=== PATIENT | female | born 1980 | race Caucasian/White ===

== ENCOUNTER → 2018-10-04 16:07 | Outpatient (CLI) | payer OTHER, SELFPAY ==
--- NOTE | 2018-10-04 16:13 | BI_ITS ---
MAMMOGRAPHY - BILATERAL SCREENING REASON FOR EXAM: Female, 37 years old. Routine annual screening examination. PERTINENT HISTORY: Non-contributory. TECHNIQUE: Digital bilateral breast marjorie (3D mammographic acquisition) in the CC and MLO projections. 2-D mediolateral oblique (MLO) and craniocaudad (CC) views of both breasts were obtained. CAD: Full Field Digital Mammography with Computer Added Detection was performed. COMPARISON: Comparison is made with prior study dated July 31, 2017 and February 26, 2016. FINDINGS: Breast Composition: The breasts are extremely dense, which lowers the sensitivity of mammography. There are no dominant masses or suspicious calcifications. No other significant abnormalities are identified. There has been no significant change since the prior study. BI/SCREENING MAMM (CAD), BILAT IMPRESSION: Stable bilateral screening mammogram. Yearly follow-up mammogram recommended. (A) ASSESSMENT CATEGORY: BIRADS Category 1: Negative. A letter regarding these results will be sent to the patient by the facility within 30 days. Approximately 10% of breast cancers are not detected by mammography. A normal mammogram should not delay biopsy of a clinically suspicious abnormality. [id number] Electronically Signed: Bruce Prince MD at 9:00 EST Tel [phone], Service support ,
== END ==
PROVIDERS: Family Provider Student in an Organized Health Care Education/Training Program; PCP Student in an Organized Health Care Education/Training Program; Referring Provider Obstetrics & Gynecology; Visit Provider Obstetrics & Gynecology
DX: Z12.31 Encounter for screening mammogram for malignant neoplasm of breast (principal)
CPT/HCPCS: 77063; 77067

== ENCOUNTER → 2019-07-25 06:57 | Outpatient (CLI) | payer OTHER, SELFPAY ==
--- NOTE | 2019-07-25 06:59 | BI_ITS ---
MAMMOGRAPHY - BILATERAL SCREENING REASON FOR EXAM: Female, 38 years old. Routine annual screening examination. PERTINENT HISTORY: Non-contributory. TECHNIQUE: Digital bilateral breast martha (3D mammographic acquisition) in the CC and MLO projections. 2-D mediolateral oblique (MLO) and craniocaudad (CC) views of both breasts were obtained. CAD: Full Field Digital Mammography with Computer Added Detection was performed. COMPARISON: Comparison is made with prior examination dated October 04, 2018 and July 31, 2017. FINDINGS: Breast Composition: The breasts are extremely dense, which lowers the sensitivity of mammography. There are no dominant masses or suspicious calcifications. No other significant abnormalities are identified. There has been no significant change since the prior study. BI/SCREEN MAMM (CAD) W/MARTHA BILAT IMPRESSION: Stable bilateral screening mammogram. Yearly follow-up mammogram recommended. (A) ASSESSMENT CATEGORY: BIRADS Category 1: Negative. A letter regarding these results will be sent to the patient by the facility within 30 days. Approximately 10% of breast cancers are not detected by mammography. A normal mammogram should not delay biopsy of a clinically suspicious abnormality. [id number] Electronically Signed: Bruce Prince, at 10:15 EDT , Service support ,
== END ==
PROVIDERS: Family Provider Student in an Organized Health Care Education/Training Program; PCP Student in an Organized Health Care Education/Training Program; Referring Provider Obstetrics & Gynecology; Visit Provider Obstetrics & Gynecology
DX: Z12.31 Encounter for screening mammogram for malignant neoplasm of breast (principal)
CPT/HCPCS: 77063; 77067

== ENCOUNTER → 2020-07-31 15:53 | Outpatient (CLI) | payer OTHER, SELFPAY ==
--- NOTE | 2020-07-31 15:59 | BI_ITS ---
MAMMOGRAPHY - BILATERAL SCREENING REASON FOR EXAM: Female, 39 years old. Routine annual screening examination. PERTINENT HISTORY: NO FM HX , CURRENT PROGESTERONE SINCE 2016, PT C/O OCCAS TENDERNESS LT SIDE SINCE 2017 WHEN U/S CONFIRMED CYST TECHNIQUE: Digital bilateral breast marjorie (3D mammographic acquisition) in the CC and MLO projections. 2-D mediolateral oblique (MLO) and craniocaudad (CC) views of both breasts were obtained. CAD: Full Field Digital Mammography with Computer Added Detection was performed. COMPARISON: 07/25/2019, 10/04/2018 FINDINGS: Breast Composition: The breasts are extremely dense, which lowers the sensitivity of mammography. There are no dominant masses or suspicious calcifications. There is a lucent lesion at the lateral aspect of the left breast is consistent with lipoma is stable since the previous study measuring approximately 3 cm. No other significant abnormalities are identified. BI/SCREENING MAMM (CAD), BILAT IMPRESSION: Stable bilateral screening mammogram. Yearly follow-up mammogram recommended. (A) ASSESSMENT CATEGORY: BIRADS Category 2: Benign. A letter regarding these results will be sent to the patient by the facility within 30 days. Approximately 10% of breast cancers are not detected by mammography. A normal mammogram should not delay biopsy of a clinically suspicious abnormality. [id number] Electronically Signed: Epifanio Black, at 12:36 EDT Tel , Service support ,
== END ==
PROVIDERS: PCP Student in an Organized Health Care Education/Training Program; Referring Provider Obstetrics & Gynecology; Visit Provider Obstetrics & Gynecology
DX: Z12.31 Encounter for screening mammogram for malignant neoplasm of breast (principal)
CPT/HCPCS: 77067

== ENCOUNTER → 2021-08-13 14:49 | Outpatient (CLI) | payer OTHER, SELFPAY ==
--- NOTE | 2021-08-13 14:52 | BI_ITS ---
MAMMOGRAPHY - BILATERAL SCREENING REASON FOR EXAM: Female, 40 years old. Routine annual screening examination. PERTINENT HISTORY: Non-contributory. TECHNIQUE: Digital bilateral breast martha (3D mammographic acquisition) in the CC and MLO projections. 2-D mediolateral oblique (MLO) and craniocaudad (CC) views of both breasts were obtained. CAD: Full Field Digital Mammography with Computer Added Detection was performed. COMPARISON: Comparison is made with prior study dated 07/31/2020 and 07/25/2019. FINDINGS: Breast Composition: The breasts are extremely dense, which lowers the sensitivity of mammography. There are no dominant masses or suspicious calcifications. No other significant abnormalities are identified. There has been no significant change since the prior study. BI/SCRN MAMM (CAD)W/MARTHA BILAT IMPRESSION: Stable bilateral screening mammogram. Yearly follow-up mammogram recommended. (A) ASSESSMENT CATEGORY: BIRADS Category 1: Negative. A letter regarding these results will be sent to the patient by the facility within 30 days. Approximately 10% of breast cancers are not detected by mammography. A normal mammogram should not delay biopsy of a clinically suspicious abnormality. [id number] Electronically Signed: Bruce Prince MD at 15:38 EDT , Service support ,
== END ==
PROVIDERS: PCP Student in an Organized Health Care Education/Training Program; Referring Provider Student in an Organized Health Care Education/Training Program; Visit Provider Student in an Organized Health Care Education/Training Program
DX: Z12.31 Encounter for screening mammogram for malignant neoplasm of breast (principal)
CPT/HCPCS: 77063; 77067

== ENCOUNTER 2022-02-17 07:55 | Day surgery (SDC) | payer OTHER, SELFPAY ==
[2022-02-04 16:37] LABS: Hematocrit 34.6 % (37-47); Hemoglobin 11.2 g/dL (12.0-15.0); Mean Corp Hgb Conc 32.4 g/dL (32-36); Mean Corpuscular Hgb 27.5 pg (27.0-32.0); Mean Corpuscular Volume 84.8 fL (81-99); Mean Platelet Vol. 9.1 fl (6.2-12.0); Platelet Count 291 K/mm3 (150-450); RBC Distribution Width CV 13.9 % (11.6-14.6); RBC Distribution Width SD 43.1 fl (35.1-43.9); Red Blood Count 4.08 M/mm3 (4.2-5.4); White Blood Count 5.9 K/mm3 (4.4-11.0)
[2022-02-04 16:43] LABS: International Normalized Ratio 1.1; Prothrombin Time (Protime)PT. 13.2 SECONDS (11.7-14.9)
[2022-02-04 16:44] LABS: Partial Thromboplast Time 27.4 Seconds (24.1-36.2)
[2022-02-17] VITALS (8 sets, daily range): BP systolic 95–105; BP diastolic 46–69; PULSE 58–71; RESP 16; TEMP 36.2–36.8; O2SAT 98–100; BMI 19.5
--- NOTE | 2022-02-17 05:58 | PCM.HP.BLA ---
History and Physical Date of Admission: 02/17/22 Surgical History and Physical Date: 02/17/2022 Name: KIA CLEANING Age: 41 Date of : 1980 Kia Cleaning, a 41 year old female 0 1 0 1 3, presents for Hysteroscopy, dilation and curettage, polypectomy, Liletta IUD placement on February 17 2022 at . -- Kia has a history of menorrhagia with associated anemia requiring iron concerning for adenomyosis and ultrasound suggested possible cervico-uterine polyp. Bleeding has continued despite medical management. ULTRASOUND 12/21/21 UTERUS: 10 x 5.8 x 4.5 cm and contains a 2.2 x 1.6 x 1.9 cm left/fundal/subserosal fibroid. Within the cervical canal is an area with stalk like blood flow pattern. No distinct polyp is seen. ENDOMETRIAL ECHO: .47 cm. RIGHT OVARY: 3.3 x 2 x 1.8 cm and no follicles seen. LEFT OVARY: 3.2 x 2.5 x 2.1 cm and follicles are seen. MEDICATIONS HISTORY: Current medications prescribed by our practice are: 1. iron 325 mg (65 mg iron) tablet, One pill by mouth once a day 2. Prometrium 200 mg capsule, Take 2 capsules by mouth bid cycle days14 through 25 Patient is also takin. Adrenal Supplement [No Strength], pure essence 2. multivitamin tablet 3. Wellbutrin XL 300 mg 24 hr tablet, extended release, 1 PO QD ALLERGIES: NKDA Infections - Chicken pox Illnesses - no serious past illnesses Accidents - no injuries of consequence Hospitalizations - None apart from childbirth hx infertility; Review of Systems: GENERAL - Denies fever, or chills SKIN - Denies skin changes EYES - Denies visual changes EARS - Denies difficulty hearing NOSE - Denies nasal congestion or bleeding MOUTH - Denies sore throat or difficulty swallowing NECK - Denies pain or swelling RESPIRATORY - Denies shortness of breath or wheezing CARDIOVASCULAR - Denies palpitations or chest pain GASTROINTESTINAL - Denies nausea, vomiting, diarrhea, constipation GENITOURINARY - Denies dysuria, frequency of urination, incontinence of urine MUSCULOSKELETAL - Denies joint or muscle pain NEUROLOGICAL - Denies localized numbness or weakness PSYCHIATRIC - Denies depression or anxiety ENDOCRINE - Denies heat or cold intolerance, weight loss or gain HEMATO-IMMUNOLOGIC - Denies excesive bleeding with cuts SOCIAL HISTORY: Alcohol Use - occasionally Smoking - denies smoking Diet - balanced Diet Lifestyle - moderate stress lifestyle and Exercise - regular Seat Belt Use - always Employer - [employer] 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 [place] - [place] Children Name(s) - Marcus Anusha Alex Control - Vasectomy FAMILY HISTORY: Maternal Grandmother: DM I. Paternal Aunt: Ovarian cancer. MENSTRUAL HISTORY: LMP Known?- DefiniteAmount/Duration - 6 days, Regularity - Regular, Frequency - 26 days, Prior Menses - 01/28/2009, LMP - 12/19/21, Age Onset Menarche - 11 PAST PREGNANCIES: Total Pregnancies - 1; Full Term Pregnancies - 0; Premature - 1; Abortions, Induced - 0; Abortions, Spontaneous - 0; Ectopics - 0; Multiple Births - 1; Living Children - 3 SURGICAL HISTORY: 1. 02/29/2012 ; - 2. 01/03/2008 fractional D and C, hysteroscopy ; Dr. Costa - mass 3. 10/06 uterine polyp removal - [place] ; - PHYSICAL EXAM BP- 118/62 Sitting, Right arm, regular cuff Weight- 136.85633 lbs Height- 68.75 inch BMI:[id number] CONSTITUTIONAL - NAD, well nourished, and well developed SKIN - No rash, lesions, or ulcers HEENT - Normocephalic, PERRLA, EOMI NECK - No nodes, no nuchal rigidity and thyroid normal size and texture LYMPH NODES - Palpation of lymph nodes in neck and groins within normal limits LUNGS - CTA x2 without wheezes, crackles or rales CARDIAC - Regular rate and rhythm without rubs, murmurs, or gallops ABDOMEN - Without hepatosplenomegaly, distention, masses, rebound, or guarding; normal bowel sounds; no hernias EXTREMITIES - No edema or calf tenderness NEUROLOGICAL - normal gait, normal balance, normal motor PSYCHIATRIC - A and O to time, place, person, mood and affect External Genitial Vagina - non-tender without lesions Urethra/Urethral Meatus - non-tender Bladder - non-tender Vagina - vaginal nickerson are pink and moist without loss of rugae and no evidence of atropy Cervix - without cervical motion tenderness and has normal size and features without evident lesions Uterus - enlarged uterus 8 wks, wt 125-150 g Adnexa - clear without massess or tenderness PAP 05/17/2019 - NILM 02/04/22 5.9> 11.2/34/6< 291 ASSESSMENT/PLAN: 1. Excessive And Frequent Menstruation With Regular Cycle us suggests endometrial-cervicopolyp, prior subserosal posterior uterine fibroid unchanged, cannot r/o adenomyosis Plan hysteroscopy, D and C, polypectomy, Liletta IUD placement Discussed surgical risks, benefits, indications and alternatives Consents signed and reviewed, preop prep packet reviewed Anticipated hospital course and recovery discussed
[2022-02-17 08:20] LABS: Internal QC Validated? YES +Cl - CLEAR BKGD; Pregnancy, Urine Negative Negative
[2022-02-17] MEDS: Lactated Ringers 1,000 ML 15 ML IV (08:24)
--- NOTE | 2022-02-17 09:25 | EMB_PTH ---
PATIENT: AMY PLEITEZ LOC: [facility] [place] U#:[id number] AGE/SX: 41/F ROOM: RE02/17/[address]: Dr. Valerie Sinha MD : 1980 BED: DIS: 02/17/2022 SPEC #: [id number] RECD: 02/17/22 10:08 STATUS: JEWELL DICKENS #: [id number] RICH: 02/17/22 09:[address]: Valerie Sarkar DEPT: SURGICAL PATHOLOGY RECD BY: Cheryl Dutton ENTERED: 02/17/22 13:34 SP TYPE: ENDOM BX/C OTHR DR: Dr. Gunnar Graham DO Tissues: Endometrium, NOS Procedures: Surgery Specimen Level IV HEADER OPERATION: Hysteroscopy, D & C Symphion, IUD insertion PRE-OP DIAGNOSIS: Excessive and frequent menstruation with regular cycle TISSUE SUBMITTED: Endometrial curettings MICROSCOPIC DIAGNOSIS Endometrium, curettings: Proliferative endometrium. Chronic endometritis. AM:paola 02/18/2022 MICROSCOPIC DESCRIPTION Slides are reviewed. GROSS DESCRIPTION Received in fixative is one container labeled with the patient's name and designated endometrial curettings. The specimen consists of multiple irregular fragments of red-mccormick soft tissue that in aggregate measure 2.5 x 2 x 0.2 cm. The specimen is totally submitted in one cassette. / AM:paola 02/18/2022 TC:3 CPT: 02596
[2022-02-17] MEDS: Lidocaine 1% (20 ml mdv) 20 ML Vial (09:31)
[2022-02-17] MEDS: Levonorgestrel IUD (Liletta) 1 EACH INTRA-UTER (09:45)
--- NOTE | 2022-02-17 09:49 | OP.PCM_ITS ---
Report of Operation Date of Procedure: 02/17/22 Pre-Operative Diagnosis: 1. Menorrhagia 2. Dysmenorrhea 3. Uterine polyp Post-Operative Diagnosis: 1. Menorrhagia 2. Dysmenorrhea Surgery/Procedure Performed:: 1. Hysteroscopy 2. Dilation and curettage 3. Liletta IUD placement Description of Surgical Findings:: normal uterus and tubes, uterus sounded to 7.5cm Surgeon: Valerie Sarkar Type of Anesthesia: Local MAC Anesthesiologist: Hipolito Cotto Specimen's removed: endometrial curettings Estimated Blood Loss (mL): 10 Fluids Replaced: 500 ml Description of Procedure: Indications: 41-year-old 2 para 2 with a history of worsening menorrhagia with dysmenorrhea presents for scheduled hysteroscopy, D&C, possible polypectomy and levonorgestrel IUD placement. History was concerning for adenomyosis. Pelvic ultrasound had demonstrated thickening in the lower uterine segment and upper cervical canal concerning for polyp, with no clear evidence of adenomyosis however on ultrasound. Procedural risks, benefits, indications and alternatives were reviewed and patient opted to proceed. Procedure: Patient was brought to the operating room and spinal was performed. She is placed in the dorsal supine position and induced under MAC. She was repositioned to dorsolithotomy and the perineum prepped and straight catheterization of the bladder performed. She is draped in sterile fashion. The patient was placed into high lithotomy and a bivalve speculum is placed vaginally. The cervix was grasped at the anterior cervical lip using a single- tooth tenaculum. The paracervical block was placed with a total of 20 cc of 1% lidocaine. The uterus sounded to 7 and half centimeters. The cervix was subsequently dilated and hysteroscopy performed demonstrating normal uterine cavity with tubal ostia seen bilaterally there is no evidence of uterine or cervical polyp. Hysteroscopy was complete. Sharp curettage was performed and the Liletta IUD was introduced into the endometrium via the applicator and released. The tenaculum was removed from the cervix and the speculum removed from the vagina. The procedure was complete. The patient was placed into dorsal supine, awakened and transported to the recovery room. Sponge counts are correct x2. For scopic fluid deficit 200 ml Complications None Admit VTE Documentation VTE Present on Admission: No VTE Mechan Device Prophylaxis: SCD's VTE Pharm Prophylaxis ordered?: No
--- NOTE | 2022-02-17 11:30 | PCM.DC ---
Discharge Instructions Diet Discharge Diet: No restrictions Activity Discharge Activity: Return to Normal Activity and May Shower May resume sexual activity in: - (2 weeks) Dressing / Incision Call your doctor if you observe: Fever of 101 or Higher, Using more than 1 pad per hour, Shortness of breath, Chest pain, Calf discomfort and Uncontrolled pain Follow Up Care Please Follow Up With: Valerie Sinha MD When: 2-4 weeks Test Results: Test results from this visit will be discussed in further detail at your follow-up appointment, if applicable. Discharge Plan Admission Primary Reason for Your Visit: Hysteroscopy, dilation and curettage, Liletta IUD placement Attending Provider: Valerie Sarkar Primary Care Provider: Gunnar Graham Instructions Patient Instructions: Hysteroscopy Discharge Orders/Prescriptions Prescriptions: New ibuprofen 800 mg tablet 800 mg PO TID PRN (Reason: pain) Qty: 30 RF: 0 Continued Adrenal Rebuilder 1 tablet PO/SL DAILY RF: 0 multivitamin Tablet 1 tab PO DAILY RF: 0 cetirizine [Zyrtec] 10 mg Tablet 10 mg PO DAILY RF: 0 bupropion HCl 100 mg tablet 200 mg PO 0800 RF: 0 bupropion HCl 100 mg tablet 100 mg PO QHS RF: 0 garlic Tablet 300 mg PO DAILY RF: 0 cholecalciferol (vitamin D3) [Vitamin D3] 25 mcg (1,000 unit) Capsule 25 mcg PO DAILY RF: 0 Super Adrenal 1 tab PO/SL CONT RF: 0 Referrals / Follow Up: Gunnar Graham DO [Primary Care Provider] - Disposition Disposition (needs filled in before D/C Order can be placed): Home, Self Care
--- NOTE | 2022-02-17 11:31 | PCM.OPRPT ---
Problems Associated Problem List Diagnoses (1) Menorrhagia: (2) Dysmenorrhea:
== END 2022-02-17 11:50 | disposition home or self-care (01) ==
LOC: SDC 07:56 → AC 07:58
PROVIDERS: PCP Student in an Organized Health Care Education/Training Program; Referring Provider Obstetrics & Gynecology; Visit Provider Obstetrics & Gynecology
PROC: 0UB98ZZ Excision of Uterus, Via Natural or Artificial Opening Endoscopic (ICD-10-PCS; CPT 58558; principal; 2022-02-17 09:10)
DX: N71.1 Chronic inflammatory disease of uterus (principal); Z30.430 Encounter for insertion of intrauterine contraceptive device; Z80.41 Family history of malignant neoplasm of ovary; Z79.899 Other long term (current) drug therapy
CPT/HCPCS: 58558; 58300; 00952; 36415; 81025; 85027; 85610; 85730; 86850; 86900; 86901; 88305; J7120; J2405

== ENCOUNTER → 2024-08-13 | Outpatient (CLI) | payer OTHER, SELFPAY ==
[2024-08-20 09:09] LABS: QNTFERON TB Mitogen Value > 10.00 IU/mL (.); QNTFERON TB Nil Value 0.01 IU/mL (.); QNTFERON TB1+ Ag Value 0.11 IU/mL (.); QNTIFERON TB Positive Criteria Negative (Negative)
== END | disposition home or self-care (01) ==
PROVIDERS: PCP Student in an Organized Health Care Education/Training Program; Referring Provider Physician Assistant Medical; Visit Provider Physician Assistant Medical
DX: L40.0 Psoriasis vulgaris (principal); D22.5 Melanocytic nevi of trunk; D22.71 Melanocytic nevi of right lower limb, including hip
CPT/HCPCS: 36415; 86480